=== PATIENT | female | born 1965 | race Caucasian/White ===

== ENCOUNTER 2016-07-20 10:46 | Emergency (ER) | payer OTHER ==
[~2016-07-20 10:46] MED LIST: ACTOS; ACTOS PLUS; AMARYL4 M1 PO; AVAPRO150 MG; CELEXA40 MG PO; CIPRO; CIPRO500 M1 PO; CITALOPRAM HBR40 M1 PO; COLACE100 M1 PO; DIABETA5 MG PO; EFFEXOR XR150 MG; FEOSOL325 M1 PO; FISH OIL1 CAP; FLAGYL500 M1 PO; GLIMEPIRIDE; GLIMEPIRIDE4 MG PO; GLUCOPHAGE1000 M1 PO; GLUCOPHAGE1000 MG PO; GLUCOPHAGE500 MG PO; IRON1 TA1 PO; IRON325 ( 65 ) PO; IRON325 M1 PO; IRON325 M3 PO; LEVAQUIN500 MG PO; LIPITOR40 M1 PO; LITHIUM CARBON300 M; MULTIVITAMIN1 TAB; MULTIVITAMIN1 TAB PO; MULTIVITAMINS1 EAC6 PO; NEOMYCIN SULFA500 M1 PO; NORCO 7.5-3251 EACH PO; OXYCONTIN10 M1 PO; STOP HOME MEDICATION; TAMIFLU75 MG PO; TYLENOL ALLERG PO; TYLENOL325 MG PO; ULTRAM50 MG PO; VITAMIN C PO; XOPENEX HFA15 GM; ZOFRAN ODT4 MG/UDTAB PO; [UNRECOGNIZED DRUG - OTHER] PO
[2016-07-20 11:47] LABS: URINE BILIRUBIN NEGATIVE (NEG); URINE BLOOD LARGE (NEG); URINE GLUCOSE (UA) NEGATIVE (NEG); URINE KETONE NEGATIVE (NEG); URINE LEUKOCYTE ESTERASE POSITIVE (NEG); URINE NITRITE NEGATIVE (NEG); URINE PROTEIN MODERATE (NEG)
[2016-07-20 11:48] LABS: URINE APPEARANCE CLOUDY; URINE COLOR YELLOW
[2016-07-20 12:08] LABS: URINE RBC 100-150 /[HPF] (0-5); URINE WBC 150-200 /[HPF] (0-5)
[2016-07-20 12:09] LABS: URINE BACTERIA 1+
[2016-07-20] MEDS ORDERED: AMARYL1 M1 PO (12:50)
[2016-07-20] MEDS ORDERED: CELEXA20 M2 PO (12:51)
[2016-07-20] MEDS ORDERED: CIPRO500 M2 PO (13:25)
== END 2016-07-20 13:45 ==
LOC: EDMED 10:46
PROVIDERS: Emergency Medicine
DX: N30.01 Acute cystitis with hematuria (principal); Z90.710 Acquired absence of both cervix and uterus